=== PATIENT | male | born 1990 | race Caucasian/White ===

== ENCOUNTER 2019-10-26 05:16 | Inpatient (IN) | payer OTHER ==
[2019-10-26] MEDS ORDERED: AMPICILLIN-SULBACTAM 3 GM in SODIUM CHLORIDE 0.9% 100 ML IVPB STA (05:49)
[2019-10-26 06:07] LABS: Basophils % (A) 1 %; Eosinophils # (A) 0.2 k/uL (0-0.7); Eosinophils % (A) 3 %; HCT 48.4 % (39.0-53.0); HGB 15.7 gm/dL (13.0-17.5); Lymphocytes # (A) 2.1 k/uL (1.0-4.8); Lymphocytes % (A) 25 %; MCH 31.1 pg (25.0-35.0); MCHC 32.5 g/dL (31.0-37.0); MCV 95.9 fL (80.0-100.0); Mean Platelet Volume 7.8; Monocytes # (A) 0.8 k/uL (0-1.0); Monocytes % (A) 10 %; Neutrophils # (A) 5.2 k/uL (1.3-7.7); Neutrophils % (A) 61 %; Platelet Count 228 k/uL (150-450); RBC 5.05 m/uL (4.30-5.90); RDW 12.1 % (11.5-15.5); WBC 8.5 k/uL (3.8-10.6)
--- NOTE | 2019-10-26 06:18 | ED ---
Eye Problem HPI - General Chief complaint: Eye Problems Stated complaint: eye infection Time Seen by Provider: 10/26/19 05:27 Source: patient, family Mode of arrival: ambulatory Limitations: no limitations - History of Present Illness Initial comments: This patient is 29-year-old man who transfers here from [facility] to be admitted for orbital cellulitis. The patient states that he has no previous ophthalmologic history. He states that he got some dirt into his right eye nearly 2 weeks ago. He states that he had some irritation and was initially unable to get the dirt out but then was able to over the course of the next few days rinse the foreign body out. He states that he went on to develop some redness and dull pressure feeling. He was finally convinced to go to the emergency department at [facility] where they performed a computed tomography scan that showed orbital cellulitis and a transferred patient here. He also noted that he was having some right flank pain going back 2-3 days and he had some hematuria so they also worked him up for this and found him to have a right-sided ureteral stone. Patient states that he is only having minimal discomfort related to that. He does have history of previous left-sided kidney stone. chief complaint: eye pain, eye redness, foreign body -: days(s) Onset Description: gradual Location: right eye Place: street/outdoors If Injury: none Eye Symptoms: redness, discharge, blurry vision Severity: mild If Pain, Quality: other (Dull) Consistency: constant - Related Data Home Medications Medication Instructions Recorded Confirmed No Known Home Medications 10/26/19 10/26/19 Allergies Allergy/AdvReac Type Severity Reaction Status Date / Time No Known Allergies Allergy Verified 10/26/19 06:24 Review of Systems ROS Statement: Those systems with pertinent positive or pertinent negative responses have been documented in the HPI. ROS Other: All systems not noted in ROS Statement are negative. Constitutional: Denies: fever, chills Eyes: Reports: as per HPI, eye pain, eye discharge. Denies: vision change ENT: Denies: throat pain, congestion Respiratory: Denies: cough, dyspnea Cardiovascular: Denies: chest pain, palpitations, edema Gastrointestinal: Reports: as per HPI, abdominal pain. Denies: nausea, vomiting, diarrhea Genitourinary: Reports: hematuria. Denies: dysuria, testicular pain, testicular mass Musculoskeletal: Denies: back pain Skin: Denies: rash Neurological: Denies: headache, weakness, numbness, paresthesias Hematological/Lymphatic: Denies: easy bleeding Past Medical History Past Medical History: No Reported History History of Any Multi-Drug Resistant Organisms: None Reported Past Surgical History: No Surgical Hx Reported, Tonsillectomy Past Psychological History: No Psychological Hx Reported Smoking Status: Never smoker Past Alcohol Use History: None Reported Past Drug Use History: Marijuana General Exam Limitations: no limitations General appearance: alert, in no apparent distress Head exam: Present: atraumatic, normocephalic Eye exam: Present: PERRL, EOMI, conjunctival injection, periorbital swelling. Absent: scleral icterus, nystagmus, periorbital tenderness Pupils: Present: other (There is some subconjunctival hemorrhage.) ENT exam: Present: normal oropharynx Neck exam: Present: full ROM. Absent: meningismus Respiratory exam: Present: normal lung sounds bilaterally. Absent: respiratory distress, wheezes, rales, rhonchi, stridor Cardiovascular Exam: Present: regular rate, normal rhythm, normal heart sounds. Absent: systolic murmur, diastolic murmur, rubs, gallop GI/Abdominal exam: Present: soft. Absent: distended, tenderness, guarding, rebound, rigid, mass Extremities exam: Present: normal inspection, normal capillary refill. Absent: pedal edema, calf tenderness Back exam: Present: normal inspection. Absent: CVA tenderness (R), CVA tender ness (L) Neurological exam: Present: alert Skin exam: Present: warm, dry, intact, normal color. Absent: rash Course Vital Signs 10/26/19 05:21 Temperature 97.6 F Pulse Rate 88 Respiratory 18 Rate Blood Pressure 133/82 O2 Sat by Pulse 97 Oximetry Medical Decision Making - Lab Data Result diagrams: 10/26/19 05:58 10/26/19 05:58 Lab Results 10/26/19 10/26/19 Range/Units 05:58 05:58 WBC 8.5 (3.8-10.6) k/uL RBC 5.05 (4.30-5.90) m/uL Hgb 15.7 (13.0-17.5) gm/dL Hct 48.4 (39.0-53.0) % MCV 95.9 (80.0-100.0) fL MCH 31.1 (25.0-35.0) pg MCHC 32.5 (31.0-37.0) g/dL RDW 12.1 (11.5-15.5) % Plt Count 228 (150-450) k/uL Neutrophils % 61 % Lymphocytes % 25 % Monocytes % 10 % Eosinophils % 3 % Basophils % 1 % Neutrophils # 5.2 (1.3-7.7) k/uL Lymphocytes # 2.1 (1.0-4.8) k/uL Monocytes # 0.8 (0-1.0) k/uL Eosinophils # 0.2 (0-0.7) k/uL Basophils # 0.0 (0-0.2) k/uL Sodium 140 (137-145) mmol/L Potassium 4.0 (3.5-5.1) mmol/L Chloride 106 (98-107) mmol/L Carbon Dioxide 28 (22-30) mmol/L Anion Gap 6 mmol/L BUN 10 (9-20) mg/dL Creatinine 0.69 (0.66-1.25) mg/dL Est GFR (CKD-EPI)AfAm >90 (>60 ml/min/1.73 sqM) Est GFR (CKD-EPI)NonAf >90 (>60 ml/min/1.73 sqM) Glucose 120 H (74-99) mg/dL Calcium 9.2 (8.4-10.2) mg/dL Disposition Clinical Impression: Periorbital cellulitis, Kidney stone on right side Disposition: ADMITTED IP TO THIS [facility] Condition: Good Is patient prescribed a controlled substance at d/c from ED?: No Referrals: None,Stated [Primary Care Provider] - 1-2 days
[2019-10-26] MEDS ORDERED: ONDANSETRON 4 MG/2 ML VIAL IVP PRN (06:22)
[2019-10-26] MEDS ORDERED: NALOXONE 0.4 MG/ML 1 ML VIAL IV PRN (06:22)
[2019-10-26] MEDS ORDERED: Acetaminophen-Codeine 300-30mg TAB PO PRN (06:22)
[2019-10-26] MEDS ORDERED: ACETAMINOPHEN TAB 325 MG TAB PO PRN (06:22)
[2019-10-26] MEDS ORDERED: MORPHINE SULFATE 4 MG/ML SYRINGE IV PRN (06:22)
[2019-10-26 06:23] LABS: African American GFR (CKD) >90 (>60 ml/min/1.73 sqM); Anion Gap 6 mmol/L; Blood Urea Nitrogen 10 mg/dL (9-20); Calcium 9.2 mg/dL (8.4-10.2); Carbon Dioxide 28 mmol/L (22-30); Chloride 106 mmol/L (98-107); Glucose 120 mg/dL (74-99); Non-African American GFR(CKD) >90 (>60 ml/min/1.73 sqM); Sodium 140 mmol/L (137-145)
[2019-10-26] MEDS ORDERED: TAMSULOSIN 0.4 MG CAP.ER.24H PO STA (06:29)
[2019-10-26] MEDS ORDERED: AMPICILLIN-SULBACTAM 3 GM in SODIUM CHLORIDE 0.9% 100 ML IVPB SCH (06:30)
[2019-10-26] MEDS: SODIUM CHLORIDE 0.9% 1,000 ML IV SCH (06:35)
[2019-10-26] MEDS ORDERED: TEMAZEPAM 15 MG CAP PO PRN (14:49)
[2019-10-26] MEDS: AMPICILLIN-SULBACTAM 3 GM in SODIUM CHLORIDE 0.9% 100 ML IVPB SCH ×2 (15:08→21:59)
--- NOTE | 2019-10-26 15:30 | CT ---
EXAMINATION TYPE: CT brain wo con DATE OF EXAM: 10/26/2019 COMPARISON: None. HISTORY: Orbital cellulitis. Headache. CT DLP: 1074.4 mGycm. Automated Exposure Control for Dose Reduction was Utilized. TECHNIQUE: CT scan of the head is performed without contrast. FINDINGS: There is no acute intracranial hemorrhage, mass effect, or midline shift identified. The ventricles and sulci are within normal limits in size. Mercado-white matter differentiation is maintai freddie. The visualized sinuses are clear. Focal moderate preseptal soft tissue swelling on the right. In traconal fat is grossly preserved bilaterally. Globes are intact bilaterally. IMPRESSION: No acute intracranial hemorrhage or midline shift is seen.
--- NOTE | 2019-10-26 16:35 | HP ---
HISTORY AND PHYSICAL DATE OF SERVICE: 10/26/2019 CHIEF COMPLAINTS: Right eye pain and swelling and discharge. HISTORY OF PRESENT ILLNESS: This 29-year-old gentleman with a past medical history of multiple medical problems, including asthma, renal disease, left nephrolithiasis, anxiety, being followed by no primary physician in the outpatient setting, was apparently referred from [facility]. The patient apparently had orbital cellulitis. The patient works as a peres. Patient went to [place] and came out felt some dirt was there about 2 weeks ago and the patient removed the dirt. Subsequently the patient noted swelling and redness and some blurring of the vision of the right eye, with no fever. The patient was referred to [facility] and admitted for further evaluation and treatment. A CT scan showed orbital cellulitis apparently and the patient also had some right flank pain. Ophthalmology evaluation is in progress. There is no history of any fever, rigor or chills. No history of headache, loss of consciousness, seizures. PAST MEDICAL HISTORY: History of asthma, renal disease, left nephrolithiasis. HOME MEDICATIONS: None. ALLERGIES: NONE. FAMILY HISTORY: History of EtOH abuse in the family. SOCIAL HISTORY: History of THC. No history of smoking. REVIEW OF SYSTEMS: ENT: As mentioned earlier. CARDIOVASCULAR SYSTEM: No angina, palpitations. RESPIRATORY SYSTEM: No cough, hemoptysis. GI: No nausea, vomiting. : No dysuria or retention. NERVOUS SYSTEM: No numbness, weakness. ALLERGY/IMMUNOLOGY: As mentioned earlier. MUSCULOSKELETAL: As mentioned earlier. HEMATOLOGY/ONCOLOGY: No history of anemia. ENDOCRINE: No history of diabetes, hypothyroidism. CONSTITUTIONAL: As mentioned earlier. DERMATOLOGY: Negative. RHEUMATOLOGY: Negative. PSYCHIATRY: As mentioned earlier. PHYSICAL EXAMINATION: Patient is alert and oriented x3. Pulse is 80, blood pressure 130/78, respirations 17, temperature 97.6, pulse ox 99% on room air. HEENT: Examination of the right eye: Periorbital cellulitis and tenderness present. Significant erythema of the conjunctiva present. Eye movements are full, with blurring of vision on the right side. NECK: No jugular venous distention. CARDIOVASCULAR SYSTEM: S1, S2 muffled. RESPIRATORY SYSTEM: Breath sounds diminished at the bases. A few scattered rhonchi and crackles. ABDOMEN: Soft, non-tender. No mass palpable. LEGS: No edema. No swelling. NERVOUS SYSTEM: Higher functions as mentioned earlier. Moves all 4 limbs. No focal motor or sensory deficit. LYMPHATICS: No lymph node palpable in neck, axillae or groin. SKIN: No ulcer, rash, bleeding. JOINTS: No active deforming arthropathy. LABS: CBC within normal limits. Glucose 120. ASSESSMENT: 1. Right eye pain and swelling; possibly right periorbital cellulitis. Rule out keratitis. 2. History of asthma. 3. History of left nephrolithiasis. 5. History of anxiety. 6. History of tetrahydrocannabinol. 7. FULL CODE. RECOMMENDATIONS AND DISCUSSION: In this 29-year-old gentleman who presented with multiple medical issues, at this time I recommend to continue the current medications, continue symptomatic treatment. I would recommend broad-spectrum IV antibiotics. Otherwise I would also recommend infectious disease and ophthalmology consultations. Other than that, we will continue to monitor. Symptomatic treatment. DVT prophylaxis. Prognosis guarded because of multiple complex medical issues. Will repeat the CT scan of the orbit and brain also. Continue to monitor. Further recommendations to follow. I also recommend that the patient follow up with a primary physician closely after discharge. MMODL / IJN: [id number] / MTDJosh
--- NOTE | 2019-10-26 17:10 | CT ---
EXAMINATION TYPE: CT orbits wo con DATE OF EXAM: 10/26/2019 COMPARISON: None HISTORY: Orbital cellulitis CT DLP: 351.2 mGycm Automated exposure control for dose reduction was used. Multiple axial sections were obtained from the bottom of the maxilla to the top of the frontal sinuse s with without contrast. FINDINGS: There is preseptal right side periorbital soft tissue swelling. There is no evidence of retro-orbital mass. The globes are symmetric. The orbital margins are intact. I see no bony destructive process. T here is normal aeration of the maxillary sinuses. Nasal bone is intact. Zygomatic arches appear daniel l. IMPRESSION: Right side periorbital soft tissue swelling. No drainable fluid collection. No abscess seen.
[2019-10-26] MEDS: ALPRAZolam 0.25 MG TAB PO PRN (19:11)
[2019-10-26] MEDS: HEPARIN SODIUM,PORCINE 5,000 UNIT/ML 1 ML VIAL SQ SCH (22:02)
[2019-10-27] MEDS: AMPICILLIN-SULBACTAM 3 GM in SODIUM CHLORIDE 0.9% 100 ML IVPB SCH ×2 (06:14→13:53)
[2019-10-27] MEDS: ALPRAZolam 0.25 MG TAB PO PRN (07:22)
[2019-10-27] MEDS: SODIUM CHLORIDE 0.9% 1,000 ML IV SCH (07:23)
[2019-10-27 08:33] VITALS: RESP 16
[2019-10-27] MEDS: CIPROFLOXACIN 0.3% OPHTH SOLN 5 ML BTL LEFT EYE SCH ×2 (10:36→13:16)
[2019-10-27] MEDS: HEPARIN SODIUM,PORCINE 5,000 UNIT/ML 1 ML VIAL SQ SCH (10:36)
--- NOTE | 2019-10-27 12:32 | CONS ---
CONSULTATION DATE OF SERVICE: 10/27/2019 CHIEF COMPLAINT: Right eye swelling. HISTORY OF PRESENT ILLNESS: A 29-year-old male complains of 2-week history of pain and swelling in the right eye. This began suddenly when he was outdoors. The swelling is consistent and slowly improving. The patient was seen in [facility] where he had a CT scan that showed preseptal cellulitis. The patient has no associated symptoms. The patient has no diplopia. Review of systems otherwise negative. Past medical history of asthma, left nephrolithiasis. HOME MEDICATIONS: None. ALLERGIES: No known drug allergies. FAMILY HISTORY: Not significant. SOCIAL HISTORY: Positive marijuana use. Otherwise, no smoking tobacco. Ophthalmic history: None. OPHTHALMIC EXAMINATION: Visual acuity is 20/100 at near without correction in the right eye and 20/50 at near without correction in the left eye. Pupils are equal, round, and reactive to light to accommodation. There is no APD. Extraocular movements are full in both eyes. Intra- ocular pressure is approximately 18 on tactile pressure. The conjunctivae and the lids are erythematous. The conjunctivae is injected. There is no lid edema in the right eye. The cornea is clear. The iris appears to be within normal limits. The lens is clear in both eyes. Posterior exam though limited is within normal limits. ASSESSMENT/PLAN: Preseptal cellulitis, right eye. The CT scan was reviewed and fortunately based on the CT results and the ophthalmic exam, this cellulitis is pre septal. There are no orbital signs. There is no diplopia and no apparent pupillary defect. Therefore, the patient can continue management for this condition as an outpatient. The patient should be switched from IV Unasyn to p.o. antibiotics. The patient should also be started on ciprofloxacin ophthalmic drops 4 times daily in the right eye. Followup should be arranged within 48 hours after discharge from the ER to be seen as an outpatient for further management. The patient understands that if he has vision loss or double vision to report back to the ER or to the office urgently. Thank you for allowing me to participate in this patient's care. JIMMY / PABLITON: [id number] /
[2019-10-27 14:43] VITALS: BP 140/97; PULSE 85; TEMP 98.8
--- NOTE | 2019-10-27 23:05 | PN ---
PROGRESS NOTE DATE OF SERVICE: 10/27/2019 This 29-year-old gentleman admitted with right eye pain as well as right periorbital cellulitis. No chest pain. No palpitations. No fever. Patient on broad-spectrum IV antibiotics. PHYSICAL EXAMINATION: On exam, alert and oriented x3. Pulse 85, blood pressure 140/97, respiration 16, temperature 98.8, pulse ox 97% on room air. HEENT: Conjunctivae normal. NECK: No jugular venous distention. CARDIOVASCULAR: S1, S2 muffled. RESPIRATORY: Breath sounds diminished at the bases. No rhonchi, no crackles. ABDOMEN: Soft. LEGS: No edema, no swelling. NERVOUS SYSTEM: No focal deficits. Examination of the right eye has significant erythema. LABS: Noted. ASSESSMENT: 1. Right eye pain and swelling with possible right periorbital cellulitis. 2. History of asthma. 3. History of left nephrolithiasis. 4. History of anxiety. 5. History of THC. 6. FULL CODE. RECOMMENDATIONS AND DISCUSSION: Recommend to continue current medications, continue symptomatic treatment. Continue with antibiotics. Closely follow with Infectious Disease and as well as Ophthalmology. Guarded prognosis. Further recommendations to follow. MMODL / IJN: [id number] /
--- NOTE | 2019-10-28 06:26 | DS ---
DISCHARGE SUMMARY FINAL DIAGNOSIS: 1. Right eye pain and swelling, right periorbital cellulitis. 2. History of asthma. 3. History of left nephrolithiasis. 4. History of anxiety. 5. History of THC. 6. FULL CODE. DISCHARGE DISPOSITION: The patient left the hospital AGAINST MEDICAL ADVICE. HISTORY OF PRESENT ILLNESS: This 29-year-old gentleman was admitted with right eye pain and swelling and periorbital cellulitis. The patient was given IV antibiotics. Seen by Infectious Disease as well as Ophthalmology; however, the patient left the hospital AGAINST MEDICAL ADVICE. Please refer to the multiple consultations and progress notes for further information. MMODL / IJN: [id number] /
== END 2019-10-27 16:01 | disposition left against medical advice (07) | DRG 603 ==
LOC: EC 05:16 → 5NMEDONC 06:23 → 4SSUR 10:36
PROVIDERS: ADMIT Hospitalist; ATTEND Hospitalist
DX: L03.213 Periorbital cellulitis (principal); J45.909 Unspecified asthma, uncomplicated; Z87.442 Personal history of urinary calculi; Z11.59 Encounter for screening for other viral diseases; F41.9 Anxiety disorder, unspecified
CPT/HCPCS: 36415; 70450; 70480; 80048; 85025; 85652; 86140; 96365; 96366; 96372; 99285